=== PATIENT | female | born 1985 | race Caucasian/White ===

== ENCOUNTER → 2017-09-11 | Outpatient (CLI) | payer OTHER ==
[~2017-09-11] MED LIST: CIPR250T2 PO; CIPR500T2 PO; GARC500T PO; LISD70 PO; PRIL20TA2 PO; PRIS50TA PO; PROM25SU8 PO; Z.0.NO CURRENT MEDS
--- NOTE | 2017-09-15 18:45 | EKG ---
Date Performed: 09/11/2017 Time Performed: 15:26:59 PTAGE: 32 years EKG: Sinus rhythm NORMAL ECG NO PREVIOUS TRACING DOCTOR: Clifford Winn Interpretating Date/Time 09/15/2017 18:42:25
== END ==
LOC: CPRE 15:15
PROVIDERS: ATTEND Obstetrics & Gynecology Gynecologic Oncology
DX: Z01.810 Encounter for preprocedural cardiovascular examination (principal); R19.09 Other intra-abdominal and pelvic swelling, mass and lump
CPT/HCPCS: 93005

== ENCOUNTER 2017-09-21 07:30 | Inpatient (IN) | payer OTHER ==
[~2017-09-21] VITALS: Ht 147.3 cm; Wt 54.0 kg
[~2017-09-21 07:30] MED LIST changes: -CIPR250T2 PO; -CIPR500T2 PO; -PROM25SU8 PO; -Z.0.NO CURRENT MEDS
[2017-09-21] MEDS ORDERED: INSULIN HUMAN REGULAR 1,000 UNITS/10 ML VIAL SQ PRN (09:15)
[2017-09-21] MEDS ORDERED: SODIUM CHLORID 0.9% 500 ML IV PRN (09:15)
[2017-09-21] MEDS ORDERED: ceFAZolin 1,000 MG/NS 100 ML IV SCH ×2 (09:15)
[2017-09-21] MEDS ORDERED: POVIDONE IODINE 5% (ANTISEPSIS KIT) 4 APPLICATIONS EACH NARE PRN (09:15)
[2017-09-21] MEDS ORDERED: METOPROLOL TARTRATE 25 MG TAB PO PRN (09:15)
[2017-09-21] MEDS ORDERED: LACTATED RINGER'S 1000 ML IV PRN (09:15)
[2017-09-21] MEDS ORDERED: HEPARIN SODIUM - SQ 10,000 UNITS/ML VIAL SQ SCH (09:15)
[2017-09-21] MEDS ORDERED: CHLORHEXIDINE GLUCONATE 2 % 1 PACK (2 CLOTHS) TOPICAL PRN (09:15)
[2017-09-21 10:44] LABS: INTERNATIONAL NORMALIZED RATIO 1.3 RATIO; PROTHROMBIN TIME - PATIENT 13.4 SEC (9.8-11.6)
[2017-09-21] MEDS ORDERED: ONDANSETRON HCL 4 MG/2 ML VIAL IV ONE (12:00)
[2017-09-21] MEDS ORDERED: DEXAMETHASONE SOD PHOS 4 MG/ML VIAL IV ONE (12:00)
[2017-09-21] MEDS ORDERED: SODIUM CHLORIDE 0.9% 20 ML VIAL IV ONE (12:00)
[2017-09-21] MEDS ORDERED: PHENYLEPH/NS 1000 MCG/10 ML SYR IV ONE (12:00)
[2017-09-21] MEDS ORDERED: LACTATED RINGER'S 1000 ML INJ 2,000 ML IV ONE (12:00)
[2017-09-21] MEDS ORDERED: PHENYLEPHRINE HCL 10 MG/ML VIAL IV ONE (12:00)
[2017-09-21] MEDS ORDERED: PROPOFOL 200 MG/20 ML AMP IV ONE (12:00)
[2017-09-21] MEDS ORDERED: ePHEDrine/NS 25 MG/5 ML SYRINGE IV ONE (12:00)
[2017-09-21] MEDS ORDERED: VECURONIUM BROMIDE 20 MG VIAL IV ONE (12:00)
[2017-09-21] MEDS ORDERED: LIDOCAINE HCL 1% PF 5 ML SYRINGE OTHER ONE (12:00)
[2017-09-21] MEDS ORDERED: ROCURONIUM INJ 50 MG/5 ML SYRINGE IV PUSH ONE (12:00)
[2017-09-21] MEDS ORDERED: MIDAZOLAM HCL 2 MG/2 ML VIAL ONE (13:07)
[2017-09-21] MEDS ORDERED: ACETAMINOPHEN 1000 MG/100 ML 100 ML IV ONE (14:00)
[2017-09-21] MEDS ORDERED: SUGAMMADEX SODIUM 200 MG/2 ML VIAL IV PUSH ONE (14:01)
[2017-09-21] MEDS ORDERED: SODIUM CHLORIDE 0.9% FLUSH 10 ML FLUSH IV FLUSH PRN (15:00)
[2017-09-21] MEDS ORDERED: NALOXONE HCL 0.4 MG/ML AMP IV PUSH PRN (15:00)
[2017-09-21] MEDS ORDERED: MORPHINE SULFATE 30 MG/30 ML PCA IV SCH (15:00)
[2017-09-21] MEDS ORDERED: diphenhydrAMINE HCL 50 MG/ML VIAL IV PUSH PRN (15:00)
[2017-09-21] MEDS ORDERED: LORazepam 0.5 MG TAB PO PRN (15:00)
[2017-09-21] MEDS ORDERED: DO NOT ADM ANY ANTICOAGULANT DRUGS PRN (15:25)
[2017-09-21] MEDS: D5-1/2 NS + KCL 20 MEQ INJ 1,000 ML IV SCH (15:38)
[2017-09-21] MEDS: KETOROLAC TROMETHAMINE 30 MG/ML (IVP) VIAL IVP SCH ×2 (15:53→21:18)
[2017-09-21 16:00] VITALS: BP 123/76; PULSE 68; RESP 16; TEMP 97.5; O2SAT 100
[2017-09-21] MEDS: ONDANSETRON HCL 4 MG/2 ML VIAL IVP PRN ×2 (17:14→23:17)
[2017-09-21] MEDS: oxyCODONE/ACETAMINOPHEN 5 MG/325 MG TAB PO PRN (17:18)
[2017-09-21 19:36] VITALS: BP 119/75; PULSE 67; RESP 16; TEMP 97.8; O2SAT 100
[2017-09-21] MEDS: SODIUM CHLORIDE 0.9% FLUSH 10 ML FLUSH IV FLUSH SCH (21:11)
[2017-09-21] MEDS: PANTOPRAZOLE SOD 20 MG DELAYED RELEASE TAB PO SCH (21:20)
[2017-09-21] MEDS: PCA - TOTAL MG MORPHINE DELIVERED PER SHIFT SCH (22:00)
[2017-09-21 23:24] VITALS: BP 112/70; PULSE 69; RESP 16; TEMP 97.8; O2SAT 100
[2017-09-22] VITALS (21 sets, daily range): BP systolic 97–121; BP diastolic 56–71; PULSE 64–94; RESP 16–18; TEMP 97.5–98.6; O2SAT 96–100
[2017-09-22] MEDS: oxyCODONE/ACETAMINOPHEN 5 MG/325 MG TAB PO PRN ×5 (00:56→22:49)
[2017-09-22] MEDS: D5-1/2 NS + KCL 20 MEQ INJ 1,000 ML IV SCH ×3 (00:57→20:42)
[2017-09-22] MEDS: KETOROLAC TROMETHAMINE 30 MG/ML (IVP) VIAL IVP SCH ×4 (04:02→20:41)
[2017-09-22] MEDS: PCA - TOTAL MG MORPHINE DELIVERED PER SHIFT SCH ×3 (06:43→22:50)
[2017-09-22] MEDS: SODIUM CHLORIDE 0.9% FLUSH 10 ML FLUSH IV FLUSH SCH ×2 (07:31→20:41)
--- NOTE | 2017-09-22 07:55 | HHI.PR ---
Subjective . c/o nausea, little tolerance of liquids reports pain, fatigue c/w surgery Objective . afeb, vss i/o 2920/2755 labs pending somnolent but awake, nad cta, rrr soft, nt nd, clean and dry ext nt Assessment/Plan . pod#1 doing ok nausea likely c/w anesthesia antiemetics, ivfs, reassurance, tincture of time findings at surgery reviewed, q&a, she understands increase oob, spirometry her d/c'd, decrease ivf rate Tanya Paiz MD Sep 22, 2017 07:55
[2017-09-22] MEDS ORDERED: LISDEXAMFETAMINE 70 MG PO SCH (09:00)
[2017-09-22] MEDS: [UNRECOGNIZED DRUG - REMARK] PO SCH (09:00)
[2017-09-22] MEDS: ONDANSETRON HCL 4 MG/2 ML VIAL IVP PRN (09:45)
--- NOTE | 2017-09-22 10:44 | MP ---
cc: Tanya Piaz MD, Shakeela MD DATE OF OPERATION: 09/21/2017 PREOPERATIVE DIAGNOSIS: Complex pelvic mass. POSTOPERATIVE DIAGNOSIS: Right ovarian mature cystic teratoma. PROCEDURE PERFORMED: Exploratory laparotomy, right salpingo-oophorectomy (resection of complex ovarian mass). SURGEON: Tanya Paiz MD TRAVELING CLERK: Chidi paperhanger assistant ANESTHESIA: General endotracheal anesthesia. ESTIMATED BLOOD LOSS: 20 milliliters. INTRAVENOUS FLUIDS: 1800 milliliters. URINE OUTPUT: 335 milliliters. INDICATIONS FOR PROCEDURE: This is a 32-year-old female who had presented recently to the emergency room with severe pain, found on exam and imaging to have a complex ovarian mass, approximately 6 cm. It had some characteristics suggestive of a dermoid. She was also found to have an incomplete rotation of the gut such that majority of her small bowel was in the right upper quadrant, without crossing the midline. She was previously unaware of this anatomical finding. The pain resolved, but the mass persisted. She was counseled regarding consideration for treatment and presents now in favor of surgical management. She is seen again in the preop holding area, where I again explained our objectives to be conservative. We are going to remove the mass. This may require removing that tube and ovary. If there is clearly normal ovary from which this mass can be , we may be able to preserve ovarian tissue, but that would not be known until surgical findings. Even in the setting of malignancy, she wishes to preserve her uterus, contralateral tube and ovary. We may do staging biopsies and these biopsies are again reviewed, but she understands the objectives to not do a complete hysterectomy or bilateral salpingo-oophorectomy irrespective of the pathology at this surgery and that is in keeping with her wishes and our discussion. She understands and would like to proceed. FINDINGS: The left tube and ovary appear normal. The uterus is small, appears normal. The right fallopian tube appears normal. The right ovary is replaced by a complex mass as both cystic and solid components. There is some nodular irregularity near the vascular input. I cannot clearly delineate normal ovary and find a clear cut division or plane between what would be considered any residual normal ovary in this mass. Accordingly, decision was made to remove the right tube and ovary to avoid rupture and given the uncertainty regarding the pathology. There is no abnormality that could be appreciated visibly or palpably within the region that is accessed through the surgical exposure. The peritoneal surfaces were smooth. There was no ascites. There was no appreciably enlarged lymph nodes. Frozen section analysis of the mass favored being a mature cystic teratoma (dermoid). No evidence of malignancy on preliminary evaluation. DESCRIPTION OF PROCEDURE: She was taken to the operating room, placed in dorsal lithotomy position after general endotracheal anesthesia was administered. A time out was undertaken. She was identified by sight recognition and hospital ID tamika, and the proposed procedure was reviewed and confirmed. She was carefully positioned and padded in Santana stirrups. Arms were relaxed out to the side. Exam under anesthesia was performed. The findings as described above. She was prepped, draped in sterile fashion. An Ioban drape was used over the abdominal wall. A small low transverse incision was made and carried down through the level of the fascia. The fascia was entered and extended beyond the extent of the skin incision bilaterally. The fascia was elevated and the underlying rectus muscles were dissected off up toward the umbilicus and down towards the symphysis. The rectus muscles were in the midline. The peritoneum was grasped, entered with sharp dissection and the peritoneal incision was extended, the opening between the rectus muscles to the extent of the dissection exposure. With hand held retraction and mobilization, eventually the uterus was able to be relaxed. Two lap pads were placed in the abdomen to help retract the bowel that was otherwise precluding access. Curved Ahmet clamp was placed along the right uteroovarian ligament, which elevated the uterus. This allowed inspection, identification of the anatomy, with findings as described above. With retraction, repositioning, able to finally deliver the cystic mass through the abdominal wall incision and this helped clarify the anatomy. It was inspected, palpated and, as noted above, I could not clearly delineate normal benign ovary separate from this mass, so decision was made to remove the right tube and ovary. The right uteroovarian ligament was isolated. There was a window made in the peritoneum below the right uteroovarian ligament and the right uteroovarian ligament was clamped and cut. Retroperitoneal dissection was carried out, although the right round ligament was left intact, the peritoneum was opened lateral and parallel to the right infundibular pelvic ligament. The right ureter was identified and was retracted posteriorly. This dissection was started on the gonadal vessels near the uterus and dissected proximally, elevating the infundibulopelvic ligament, with posterior peritoneum being opened and the ureter dissected posteriorly. The infundibular pelvic ligament was then doubly clamp, cut and doubly suture ligated, thereby removing the right tube and ovary, sent for histopathologic analysis with findings as described above. Interrupted figure-of-8 0 Vicryl sutures were used to secure and render hemostatic the right uteroovarian ligament. The pelvis was irrigated. Anatomy was inspected. All sites were hemostatic. Seprafilm adhesion barrier was placed overlying the right adnexa, uterus and against the right pelvic sidewall, to separate this dissection area from the adjacent bowel and abdominal wall. The 2 lap pads that were placed in the peritoneal cavity were removed. Visual and palpable inspection confirmed there were no remaining foreign objects in the peritoneal cavity. Preliminary counts were correct. Attention was directed towards closing. The fascia was closed with interrupted figure-of-8 0 Vicryl sutures starting at the corners and working towards the midline, where the fascia was well reapproximated. Subcutaneous tissue was irrigated. Kalen's fascia was used to reapproximate subcutaneous tissue and then a 3-0 Vicryl subcuticular was used to close the skin. Steri-Strips and dry sterile dressing were placed over the incision. Preliminary and final counts were correct. She was returned to dorsal supine position and was pending reversal of anesthesia when I left the operating room to precede her to the Postanesthesia Care Unit. MD DONALD Hyman/SHAWN , 06:28 PM , 10:14 PM
[2017-09-22 14:48] LABS: AUTOMATED NEUTROPHIL # 10.5 TH/MM3 (1.8-7.7); BASOPHIL % 0.2 % (0.0-2.0); EOSINOPHIL # 0.1 TH/MM3 (0-0.4); EOSINOPHIL % 0.5 % (0.0-4.0); HEMATOCRIT 35.8 % (35.0-46.0); HEMOGLOBIN 12.2 GM/DL (11.6-15.3); MEAN CELL VOLUME 93.9 FL (80.0-100.0); MEAN CORPUSCULAR HGB CONC 34.1 % (32.0-36.0); MEAN PLATELET VOLUME 8.2 FL (7.0-11.0); MONO % 6.8 % (0.0-8.0); MONOCYTE # 0.9 TH/MM3 (0-0.9); NEUT % 77.5 % (16.0-70.0); PLATELET COUNT 231 TH/MM3 (150-450); RED BLOOD COUNT 3.82 MIL/MM3 (4.00-5.30); RED CELL DISTRIBUTION WIDTH 12.5 % (11.6-17.2); WHITE BLOOD COUNT 13.6 TH/MM3 (4.0-11.0)
[2017-09-22 15:01] LABS: BICARBONATE 29.1 MEQ/L (21.0-32.0); CALCIUM 8.2 MG/DL (8.5-10.1); CREATININE 0.59 MG/DL (0.50-1.00)
[2017-09-22] MEDS: POTASSIUM CHLORIDE 10 MEQ CAP PO SCH (20:41)
[2017-09-22] MEDS: PANTOPRAZOLE SOD 20 MG DELAYED RELEASE TAB PO SCH (20:41)
[2017-09-23] VITALS (7 sets, daily range): BP systolic 104–108; BP diastolic 64–66; PULSE 66–90; RESP 16–18; TEMP 98–98.2; O2SAT 99
[2017-09-23] MEDS: KETOROLAC TROMETHAMINE 30 MG/ML (IVP) VIAL IVP SCH ×2 (03:14→08:51)
[2017-09-23] MEDS: oxyCODONE/ACETAMINOPHEN 5 MG/325 MG TAB PO PRN ×2 (03:23→08:51)
[2017-09-23] MEDS: PCA - TOTAL MG MORPHINE DELIVERED PER SHIFT SCH (05:50)
[2017-09-23] MEDS: D5-1/2 NS + KCL 20 MEQ INJ 1,000 ML IV SCH (07:00)
[2017-09-23] MEDS ORDERED: OXYC1TAB63 PO (07:20)
--- NOTE | 2017-09-23 07:39 | MD ---
cc: Tanya Paiz MD,Natasha Jack DATE OF DISCHARGE: PROCEDURE: 09/21/2017 exploratory laparotomy, right salpingo-oophorectomy (resection of right ovarian mass) Preliminary pathology c/w mature cystic teratoma. HOSPITAL COURSE: She did well in the first 48 hours after surgery, initially had some nausea thought related to anesthesia. This subsided. She was tolerating oral intake. Arreaga catheter was remove on postoperative day number 1. She was voiding satisfactorily. She has increased her out of bed activity. Hemodynamically stable. INS AND OUTS: 1500/800+. LABORATORY DATA: Postoperative day number 1 H and H 12.2 and 35.8. PHYSICAL EXAMINATION: VITAL SIGNS: Afebrile, pulse 66 to 90, respirations 16 to 18, blood pressure 105 to 121/56 to 71. O2 saturations greater than or equal to 98%. GENERAL: Alert and oriented x3. No acute distress. LUNGS: Clear. CARDIOVASCULAR: Regular rate and rhythm. ABDOMEN: Soft. Incision clean and dry. EXTREMITIES: Nontender. ASSESSMENT: Postoperative day number 2. Findings at the time of surgery, preliminary pathology discussed. Activities and restrictions were reviewed. Questions were asked and answered. She expressed good understanding and agreed. PLAN: Anticipate she will meet criteria for discharge to home. She is to resume prior medications. She will have a prescription for Percocet. She is to contact our office to ensure she has a followup scheduled in a couple of weeks or call our office should she have any questions or problems between now and that time. Tanya Paiz MD KLM/DL , 07:23 AM , 07:37 AM JAEL
[2017-09-23] MEDS: SODIUM CHLORIDE 0.9% FLUSH 10 ML FLUSH IV FLUSH SCH (08:51)
[2017-09-23] MEDS: POTASSIUM CHLORIDE 10 MEQ CAP PO SCH (08:51)
[2017-09-23] MEDS: [UNRECOGNIZED DRUG - REMARK] PO SCH (08:54)
== END 2017-09-23 11:09 | disposition home or self-care (01) | DRG 743 ==
LOC: HSDI 08:28 → HCIN 16:44
PROVIDERS: ADMIT Obstetrics & Gynecology Gynecologic Oncology; ATTEND Obstetrics & Gynecology Gynecologic Oncology
PROC: 0UT50ZZ Resection of Right Fallopian Tube, Open Approach (ICD-10-PCS; 2017-09-21)
PROC: 3E0P05Z Introduction of Adhesion Barrier into Female Reproductive, Open Approach (ICD-10-PCS; 2017-09-21)
PROC: 0UT00ZZ Resection of Right Ovary, Open Approach (ICD-10-PCS; principal; 2017-09-21 12:41)
DX: D27.0 Benign neoplasm of right ovary (principal); F32.9 Major depressive disorder, single episode, unspecified; Z87.891 Personal history of nicotine dependence
CPT/HCPCS: 80048; 85025; 85610; 85730; 86850; 86900; 86901; 88112; 88305; 88307; 88311; 88331; 94150; C1765; J0131; J0690; J1100; J1885; J2250; J2270; J2370; J2405; J3010; J3480; J7120